=== PATIENT | male | born 1995 | race Caucasian/White ===

== ENCOUNTER 2018-12-19 15:27 | Emergency (ER) | payer MEDICAID ==
[~2018-12-19] VITALS: Ht 182.9 cm; Wt 90.0 kg
[2018-12-19] MEDS ORDERED: KETOROLAC 30MG/ML VIAL IV ONE (16:45)
[2018-12-19 19:02] VITALS: BP 122/68
== END 2018-12-19 19:04 | disposition home or self-care (01) ==
LOC: ER 15:27
DX: S40.012A Contusion of left shoulder, initial encounter (principal); F17.200 Nicotine dependence, unspecified, uncomplicated; F12.10 Cannabis abuse, uncomplicated; V49.49XA Driver injured in collision with other motor vehicles in traffic accident, initial encounter; Y93.89 Activity, other specified; Y92.89 Other specified places as the place of occurrence of the external cause; Y99.8 Other external cause status; Z90.49 Acquired absence of other specified parts of digestive tract
CPT/HCPCS: 71045; 73030; 96374; 99283; 99406; J1885